=== PATIENT | male | born 1965 | race Caucasian/White ===

== ENCOUNTER 2024-01-02 16:42 | Emergency (ER) | payer OTHER, SELFPAY ==
--- NOTE | ~2024-01-02 | XR_ITS ---
XR wrist LT min 3V DATE: 01/02/2024 17:12 INDICATION: Left wrist injury from fall today. Pain. TECHNIQUE: 4 views COMPARISON: None FINDINGS: There is a virtually nondisplaced comminuted fractures of the distal radial shaft and metap hysis. No disruption of the articular surface of the distal radius is evident. The distal ulna is intact. Normal radiocarpal alignment. No other fracture or dislocation is evident. Chronic smooth corticated ossicle is noted at the distal medial margin of the radius. 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 IMPRESSION: Virtually nondisplaced distal radial fracture Reviewed, dictated and finalized at location A.
[2024-01-02 17:02] VITALS: BP 145/81; PULSE 96; RESP 16; TEMP 37.3; O2SAT 98
[2024-01-02] MEDS: ACETAMINOPHEN 500 MG TABLET 1000 MG PO (17:26)
--- NOTE | 2024-01-02 17:29 | ED.UPPEXIN ---
HPI - Extremity Injury (Upper) General Chief Complaint: Extremity Injury, Upper Stated Complaint: left wrist issue Time Seen by Provider: 01/02/24 17:29 Source: patient Mode of arrival: ambulatory Limitations: no limitations History of Present Illness HPI narrative: 4-year-old male presents with complaint of pain and swelling to left wrist. Patient was tearing down a middle corey and throwing it out to Street for trash apple picker. Patient lost his balance and fell backwards, put left arm out to catch himself. Did not hit head. Was able to get up on his own. Range of motion decreased due to pain, distal neurovascularly intact. All systems reviewed and negative except as noted above. Related Data Home Medications Medication Instructions Recorded Confirmed valsartan 40 mg tablet 40 mg PO DAILY 01/02/24 01/02/24 Allergies Allergy/AdvReac Type Severity Reaction Status Date / Time No Known Allergies Allergy Verified 01/02/24 17:17 Review of Systems Review of Systems: CONSTITUTIONAL: Denies fever, chills, or sweats. EYES: Denies visual changes, redness, or discharge. ENT: Denies rhinorrhea, congestion, sore throat, or otalgia. CARDIOVASCULAR: Denies chest pain, palpitations, or edema. RESPIRATORY: Denies cough or dyspnea. GASTROINTESTINAL: Denies abdominal pain, nausea, vomiting, or diarrhea. GENITOURINARY: Denies dysuria or hematuria. SKIN: Denies rash or itching. MUSCULOSKELETAL: Reports pain and swelling to left wrist NEUROLOGIC: Denies headache, numbness, or weakness. PSYCHIATRIC: Denies anxiety or depression. All other systems reviewed are negative, except as documented in HPI. PMFSH Comments At time of signature, agree with nursing past medical, surgical, social and family history. There is no relevant family history pertinent to the presenting complaint. Exam Narrative: GENERAL: This is a well-nourished, well-developed patient, in no apparent distress. HEAD: normocephalic, atraumatic. EYES: PERRL. Sclera clear/white. Vision is grossly intact. EARS: External ears normal, auditory canals clear and without drainage, TMs normal without perforation. Hearing grossly intact. NOSE: External nose normal with no obvious nasal discharge, nares without redness, no rhinorrhea. THROAT: Mucous membranes moist, posterior pharynx clear. NECK: Neck supple, non-tender without lymphadenopathy, masses or thyromegaly. CARDIOVASCULAR: Regular rate and rhythm without murmurs, gallops, or rubs. RESPIRATORY: Clear to auscultation. Breath sounds equal bilaterally. No wheezes, rales, or rhonchi. SKIN: warm, Dry, intact with no suspicious lesions or rash, good texture and turgor. NEURO: awake, alert, and oriented to person, place and time. There were no obvious focal neurologic abnormalities. EXTREMITIES: tenderness to distal aspect of left radius without deformity. Moderate swelling noted. Left radial pulse 2 +. Decreased range of motion due to pain. Course Course Level of Care: Express Care Visit Vital Signs Vital signs: Vital Signs Temperature 37.3 C 01/02/24 17:02 Pulse Rate 96 01/02/24 17:02 Respiratory Rate 16 01/02/24 17:02 Blood Pressure 145/81 H 01/02/24 17:02 Pulse Oximetry 98 01/02/24 17:02 Oxygen Delivery Room Air 01/02/24 17:02 Temperature 37.3 C 01/02/24 17:02 Pulse Rate 96 01/02/24 17:02 Respiratory Rate 16 01/02/24 17:02 Blood Pressure 145/81 H 01/02/24 17:02 Pulse Oximetry 98 01/02/24 17:02 Oxygen Delivery Room Air 01/02/24 17:02 Reviewed MDM - Extremity Injury (Upper) MDM Narrative Medical decision making narrative: patient placed in short-arm splint by YEMI Zarate. Neurovascularly intact pre and postprocedure. Patient referred to Orthopedics for follow-up. Patient is aware of diagnosis, understands and agrees to treatment plan. Anticipatory guidance given. Patient agrees to follow-up as directed and is aware of reasons to seek care at t
== END 2024-01-02 18:08 | disposition home or self-care (01) ==
PROVIDERS: Emergency Provider Nurse Practitioner Family; PCP Family Medicine
DX: S52.502A Unspecified fracture of the lower end of left radius, initial encounter for closed fracture (principal); W19.XXXA Unspecified fall, initial encounter; I10 Essential (primary) hypertension
CPT/HCPCS: 29125; 73110; 99214; A4565; A9270; G0463

== ENCOUNTER 2024-06-13 08:06 | Emergency (ER) | payer OTHER, SELFPAY ==
--- NOTE | 2024-06-13 08:20 | ED_ITS ---
HPI - Male Genitourinary General Chief complaint: Back Pain/Injury Stated complaint: kidney stone Time Seen by Provider: 06/13/24 08:21 Source: patient, RN notes reviewed and old records reviewed Mode of arrival: ambulatory Limitations: no limitations History of Present Illness HPI Narrative: Patient presents with complaints of right-sided low back pain that began 2 days ago. He complains of some intermittent nausea for couple of weeks. Reports that he is able to eat and drink as normal. Reports normal bowel movements. Denies any vomiting. Denies any abdominal pain. He denies any fever, chills, sweats. He denies any injury or trauma. He reports that the pain in the right side of his lower back feels similar to kidney stones that he had about 7 years ago. Denies any franko blood in the urine. Denies any difficulty with urination. Related Data Home Medications ?Medication ?Instructions ?Recorded ?Confirmed ?Last Taken ?Type valsartan 40 mg tablet 40 mg PO DAILY 01/02/24 02/17/24 Unknown History Allergies Allergy/AdvReac Type Severity Reaction Status Date / Time No Known Allergies Allergy Verified 06/13/24 08:25 Review of Systems Review of Systems: All systems reviewed & are unremarkable except as noted in HPI and below Constitutional: Constitutional: Reports no additional constitutional complaints ENT: Reports system reviewed and no additional complaints, except as documented Cardiovascular: Cardiovascular: Reports no additional cardiovascular complaints Respiratory: Respiratory: Reports no additional respiratory complaints Gastrointestinal: Gastrointestinal: Reports no additional gastrointestinal complaints and Reports nausea Genitourinary: Genitourinary: Reports flank pain PMFSH Past Medical History Medical History History of stress test 10+ years Hypertension Surgical History Surgical History History of dental surgery Social History Social History Smoking status: Smoker, status unknown Alcohol intake: never Substance use: never Substance use type: does not use Do You Feel Safe in your Home?: Yes Lack of Transportation: YES Lack of Food: Never True Current Housing: I Have Housing Concerned About Future Housing: No Difficulty Paying Gas/Electric Bills: No Difficulty Paying for Meds: No Currently Unemployed: No Education: High School Diploma/GED Difficulty w/ Childcare or Family Care: No Comments At the time of my signature, I reviewed and agree with the nursing past medical, surgical, social, and family history. There is no relevant family history pertinent to the patient complaint. Exam Const: General: cooperative, no acute distress, alert and awake Orientation/consciousness: oriented to person, oriented to place and oriented to time HENMT: Head: normal to inspection Resp: Effort & Inspection: normal respiratory effort and able to speak in complete sentences Auscultation: clear to auscultation bilaterally, no crackles, no rales, no rhonchi and no wheezes Cardio: Palpation: normal PMI Rate: regular rate Rhythm: regular rhythm Heart sounds: S1 normal heart sound present and S2 normal heart sound present GI: GI Palp: Yes Soft to palpation, No Tenderness to palpation present (GI), No Guarding due to palpation present (GI) and No Rigid due to palpation Auscultation: normal bowel sounds : General: Yes no CVA tenderness Neuro: General: oriented to person, oriented to place and oriented to time Cranial nerves: Yes CN's II-XII intact bilaterally Psych: Appearance: grossly normal Thought process: Normal thought process present Insight: Good insight present (Psych) Judgement: Good judgement present (Psych) Course Course Level of Care: Express Care Visit Vital Signs Vital signs: Reviewed MDM - Male Genitourinary MDM Narrative Medical decision making narrative: Urine with high specific gravity, otherwise clear. No blood. No CVA tenderness. Unsure of cause of nausea, as this has been going on intermittently for couple of weeks. Patient states not terribly bothersome. Low back pain likely musculoskeletal in origin given clear urine. Emergency department precautions discussed length with the patient. He verbalizes understanding. Start muscle relaxants Discharge instructions reviewed with patient, as well as provided in writing per nursing staff. The instructions also include specific and strict return/GO TO THE ER as well as f/u information. All questions have been answered, and the patient deny any further questions with discharge and discharge plan. Some parts of this dictation were generated by voice recognition software and may contain typographical and/or grammatical inaccuracies. Differential Diagnosis Differential diagnosis: Likely urinary tract infection and other (Musculoskeletal pain, kidney stone) Medical Records Attestation: I reviewed the patient's medical records. Lab Data Attestation: I reviewed the patient's lab results. Discharge Plan Discharge Clinical Impression: Musculoskeletal back pain Patient Disposition: Home, Self-Care Condition: Stable Instructions: Antibiotic Form, Back Pain (ED) Additional Instructions: Use medication as prescribed. Follow with primary care provider. Emergency department immediately for new or worse symptoms Patient Language: Luxembourgish Prescriptions: New cyclobenzaprine 10 mg tablet 10 mg PO TID PRN (Reason: muscle spasm) Qty: 10 0RF No Action valsartan 40 mg tablet 40 mg PO DAILY Follow-up/Referrals: Precious,Hans Marcelino MD [Primary Care Provider] - 3 Days (nausea, back pain) Time of Disposition: 08:40
[2024-06-13 08:26] VITALS: BP 148/83; PULSE 77; RESP 16; TEMP 36.6; O2SAT 99
[2024-06-13 13:36] LABS: EDUAAPPEAR Clear; EDUABILI Negative (Negative); EDUABLOOD Negative (Negative); EDUACOLOR1 Yellow; EDUAGLUCOSE Negative (Negative); EDUAKETONE Negative (Negative); EDUALEUKO Negative (Negative); EDUANITRATE Negative (Negative); EDUAPH 5.5; EDUAPROTEIN Negative (Negative); EDUAUROBILI 0.2
== END 2024-06-13 08:50 | disposition home or self-care (01) ==
PROVIDERS: Emergency Provider Nurse Practitioner Family; PCP Family Medicine
DX: M54.50 Low back pain, unspecified (principal); I10 Essential (primary) hypertension
CPT/HCPCS: 81003; 99213; G0463